=== PATIENT | female | born 1970 | race Caucasian/White ===

== ENCOUNTER 2018-05-19 08:39 | Emergency (ER) | payer OTHER ==
[~2018-05-19] VITALS: Ht 160 cm; Wt 75.8 kg
[~2018-05-19 08:39] MED LIST: FLEXERIL PO; KEFLEX500 M2 PO; MEDROLDOSEPACK PO; NAPROSYN500 MG PO; TRAMADOL 50 MG50 MG PO
[2018-05-19] MEDS ORDERED: FLEXERIL PO (08:53)
[2018-05-19] MEDS ORDERED: HYDROCODONE-AP1 EAC6 PO (09:16)
[2018-05-19 09:38] VITALS: BP 121/50
== END 2018-05-19 09:38 | disposition home or self-care (01) ==
LOC: M.ERS 08:39
DX: M54.5 Low back pain (principal); G89.29 Other chronic pain